=== PATIENT | male | born 1965 | race African-American/Black ===

== ENCOUNTER → 2020-02-27 | Day surgery (SDC) | payer BC ==
[~2020-02-27] VITALS: Ht 188 cm; Wt 90.7 kg
[2020-02-27] VITALS (8 sets, daily range): BP systolic 111–143; BP diastolic 60–87
[~2020-02-27] MED LIST: ACTOS30 MG ORAL; ATORVASTATIN CA20 MG ORAL; JANUMET XR 50-1 EAC1 ORAL; JARDIANCE PO; LISINOPRIL10 MG ORAL; LR 1000ml ONE; Lidocaine 1% MPF 10mg/ml 5ml ONE; TRULICITY1.5 MG/0.5 SQ
--- NOTE | 2020-02-27 10:07 | Short Stay Surgery H&P ---
History of Present Illness History of Present Illness Chief Complaint see typed note HPI Raul Rubio is a 54 year old male who was admitted on for Screening Patient History Allergies: Coded Allergies: No Known Allergies (Unverified , 02/26/20) Medication History Scheduled Atorvastatin Calcium* (Atorvastatin Calcium*), 10 MG ORAL BEDTIME, (Reported) Dulaglutide (Trulicity), 1.5 MG SQ DAILY, (Reported) Lisinopril* (Lisinopril*), 10 MG ORAL DAILY, (Reported) Pioglitazone Hcl* (Actos*), 30 MG ORAL DAILY, (Reported) Sitagliptin Phos/Metformin Hcl (Janumet Xr 50-1,000 Mg Tablet), 1 TAB ORAL BID, (Reported) [Jardiance], 10 MG PO BID, (Reported) Physical Exam Vital Signs Last Vital Signs Date Time Temp Pulse Resp B/P (MAP) Pulse Ox O2 Delivery O2 Flow Rate FiO2 02/27/20 09:29 96.7 85 18 143/87 100 Room Air Labs Laboratory Tests Test 02/27/20 09:37 POC Whole Blood Glucose 158 MG/DL (74-106) H Plan Attestation Are the patient's medical conditions optimized for surgery? Maureen Coffman MD Feb 27, 2020 10:07
--- NOTE | 2020-02-27 10:08 | Pre-Procedure Note/Attestation ---
Pre-Procedure Note/Attestation Complete Prior to Procedure Planned Procedure: not applicable Procedure Narrative: screening colonoscopy Indications for Procedure Pre-Operative Diagnosis: screening Attestation I attest that I discussed the nature of the procedure; its benefits; risks and complications; and alternatives (and the risks and benefits of such alternatives), prior to the procedure, with the patient (or the patient's legal client support representative). I attest that, if there was a reasonable possibility of needing a blood transfusion, the patient (or the patient's legal client support representative) was given the [facility] standardized written summary, pursuant to the [place]ufino [place]enny Blood Safety Act ([place] Health and Safety Code # 1645, as amended). I attest that I re-evaluated the patient just prior to the surgery and that there has been no change in the patient's H&P, except as documented below: Maureen Coffman MD Feb 27, 2020 10:08
--- NOTE | 2020-02-27 10:52 | Endoscopy Procedure Note ---
Endoscopy Procedure Note General Indication for Procedure: screen Procedures Performed: colonoscopy Operative Findings/Diagnosis: negative exam, but suboptimal prep Specimen: none Pt Tolerated Procedure Well: Yes Estimated Blood Loss: none Anesthesia Anesthesiologist: see report Anesthesia: MAC Medications Medication Given: see anesthesia record Inserted Devices Implant(s) used?: No GI Core Measures 50 yrs or older w/o bx or poly: Yes 10yrs. F/U recommended: No If not recommended, why?: Inadequate Prep 18 years or older w/prev. colo: No <3yrs. since last colonoscopy: No Med reason:<3 yrs.: System Reason:<3 yrs.: Last colonoscopy >= to 3yrs: Yes Maureen Coffman MD Feb 27, 2020 10:52
--- NOTE | 2020-02-27 10:53 | Brief Operative Note ---
Immediate Post Operative Note Operative Note Chief Complaint: screen Pre-op Diagnosis: screening Procedure: colon Post-op Diagnosis: normall, suboptimal prep Specimen: none Complications: none Fluids: per anesthesia Implant(s) used?: No Maureen Coffman MD Feb 27, 2020 10:53
--- NOTE | 2020-02-27 10:54 | Immediate Post-Op Evaluation ---
Immediate Post-Op Evalulation Immediate Post-Op Evalulation Procedure: colonoscopy Date of Evaluation: Feb 27, 2020 Time of Evaluation: 10:54 IV Fluids: 800 Blood Pressure Systolic: 116 Blood Pressure Diastolic: 60 Pulse Rate: 73 Respiratory Rate: 14 O2 Sat by Pulse Oximetry: 99 Temperature (Fahrenheit): 97.2 Nausea: No Vomiting: No Complications none Patient Status: awake, reacts, patent Hydration Status: adequate Drug: none Fabienne Rucker CRNA Feb 27, 2020 10:54
--- NOTE | 2020-02-27 10:55 | Anethesia Preoperative Eval ---
Anesthesia Pre-op PMH/ROS General Date of Evaluation: Feb 27, 2020 Time of Evaluation: 10:00 Anesthesiologist: genna ASA Score: ASA 2 Mallampati Score Class I : Soft palate, uvula, fauces, pillars visible Class II: Soft palate, uvula, fauces visible Class III: Soft palate, base of uvula visible Class IV: Only hard plate visible Mallampati Classification: Class II Surgeon: Kelley Diagnosis: screening Surgical Procedure: colonoscopy Anesthesia History: none Family History: no anesthesia problems Allergies: Coded Allergies: No Known Allergies (Unverified , 02/26/20) Medications: see eMAR Patient NPO?: Yes NPO Date: Feb 27, 2020 NPO Time: 00:01 Past Medical History Cardiovascular: Reports: HTN; Denies: CAD, [place], valve dz, arrhythmia, other Pulmonary: Denies: asthma, COPD, CINDY, other Gastrointestinal/Genitourinary: Reports: GERD, other - constipation; Denies: CRI, ESRD Neurologic/Psychiatric: Denies: dementia, CVA, depression/anxiety, TIA, other Endocrine: Denies: DM, hypothyroidism, steroids, other HEENT: Denies: cataract (L), cataract (R), glaucoma, [place] (L), [place] (R), other Hematology/Immune: Denies: anemia, DVT, bleeding disorder, other Musculoskeletal/Integumentary: Denies: OA, RA, DJD, DDD, edema, other Anesthesia Pre-op Phys. Exam Physician Exam Last Vital Signs Date Time Temp Pulse Resp B/P (MAP) Pulse Ox O2 Delivery O2 Flow Rate FiO2 02/27/20 09:29 96.7 85 18 143/87 100 Room Air Constitutional: NAD Neurologic: CN 2-12 intact Cardiovascular: RRR Respiratory: CTA Gastrointestinal: S/NT/ND Airway Exam Mallampati Classification 2 Mallampati Score: Class II MO: full Neck: thick Dentures: no upper, no lower Anesthesia Pre-op A/P Labs Chemistry Test 02/27/20 09:37 POC Whole Blood Glucose 158 MG/DL (74-106) H Studies Pre-op Studies: EKG - sr Risk Assessment & Plan Assessment: covid neg Plan: mac Status Change Before Surgery: No Pre-Antibiotics Drug: none Fabienne Rucker CRNA Feb 27, 2020 10:55
--- NOTE | 2020-02-27 13:21 | 48 Hour Post Anesthesia Eval ---
Post Anesthesia Evaluation Procedure: colonoscopy Date of Evaluation: Feb 27, 2020 Time of Evaluation: 13:21 Blood Pressure Systolic: 122 0: 76 Pulse Rate: 70 Respiratory Rate: 14 Temperature (Fahrenheit): 98 O2 Sat by Pulse Oximetry: 99 Airway: patent Nausea: No Vomiting: No Hydration Status: adequate Cardiopulmonary Status: stable Mental Status/LOC: patient returned to baseline Post-Anesthesia Complications: none Follow-up care needed: N/A Fabienne Rucker CRNA Feb 27, 2020 13:21
--- NOTE | 2020-02-27 16:15 | Operative Note - Dictated ---
DATE OF OPERATION: 02/27/2020 GASTROENTEROLOGY PROCEDURE REPORT PROCEDURE: Screening colonoscopy. SURGEON: Maureen Coffman MD ANESTHESIA: Please see the separate anesthesiologist notes for details. PRE-ENDOSCOPIC DIAGNOSIS: Screening. POST-ENDOSCOPIC DIAGNOSES: 1. Normal colonoscopy with no evidence of polyps. 2. Suboptimal preparation making visualization for very small polyps difficult. DESCRIPTION OF PROCEDURE: The procedure, its risks, indications, alternatives, and possible complications were explained to the patient and informed consent was obtained. The patient was then sedated in the left lateral decubitus position and a rectal exam was done, which was unremarkable. The colonoscope was introduced in the rectum and advanced to the cecum. The cecum was identified by the appearance of the ileocecal valve. The colonoscope was then gradually withdrawn. The mucosa examined carefully. The examination of mucosa did not reveal any polyps. However, there were scattered areas of residual stool making the visualization of small polyps difficult. The retroflexed view of the rectum was unremarkable. The colonoscope was removed. The patient was sent to recovery in good condition. COMPLICATIONS: None. RECOMMENDATIONS: 1. Resume oral diet. 2. Follow up with primary physician. 3. Repeat colonoscopy in 5 years. Maureen Coffman M.D. DR: MARIA ESTHER JOB#: [id number] CC:
== END | disposition home or self-care (01) ==
LOC: GAS 02-26 10:01
DX: Z12.11 Encounter for screening for malignant neoplasm of colon (principal); Z79.899 Other long term (current) drug therapy; I10 Essential (primary) hypertension; K21.9 Gastro-esophageal reflux disease without esophagitis; K59.00 Constipation, unspecified
CPT/HCPCS: 45378; 82962; 94003; J2704; J7120; U0002; 94150